=== PATIENT | female | born 1985 | race Caucasian/White ===

== ENCOUNTER 2016-10-01 06:20 | Day surgery (SDC) | payer MEDICAID ==
[~2016-10-01 06:20] MED LIST: Dextrose 5%-0.45% NaCl 1,000 ML IV SCH; Midazolam 1 MG/ML 2 ML SDV ONE; Sodium Chloride 0.9% 10 ML Syringe FLUSH PRN; fentaNYL 100 MCG/2 ML SDV ONE
[2016-10-01] MEDS ORDERED: Sodium Chloride 0.9% 10 ML Syringe FLUSH PRN (06:23)
[2016-10-01] MEDS ORDERED: Dextrose 5%-0.45% NaCl 1,000 ML IV SCH (06:30)
[2016-10-01] MEDS ORDERED: fentaNYL 100 MCG/2 ML SDV IV ONE ×3 (07:39→15:23)
[2016-10-01] MEDS ORDERED: Midazolam 1 MG/ML 2 ML SDV IV ONE ×3 (07:40→15:23)
--- NOTE | 2016-10-01 08:29 | OR ---
{null, DATE: 10/01/2016 PROCEDURES: Esophagogastroduodenoscopy and multiple pinch biopsies. INSTRUMENT USED: [id number] Olympus video panendoscope. PREMEDICATIONS: No oral topical anesthesia used. Fentanyl 100 mcg intravenous, Versed 2 mg intravenous. The procedure was done under pulse oximetry, BP recording, and weed science research technician. INDICATION: The patient with persistent upper abdominal pain unexplained and not responsive to medical measures, on PPI. Esophagogastroduodenoscopy is performed for detection of any active erosive lesions, Robbins esophagus and/or malignancy also under consideration, H. pylori status to be determined, endoscopic hemostasis therapy if needed. DESCRIPTION OF PROCEDURE: The scope was passed with ease. Adequate visualization of the esophagus was made from proximal to distal areas. No upper esophageal lesions identified. No distal esophageal stricture. No uphill or downhill esophageal varices. No Simran-Huerta tear. No evidence of erosive esophagitis by Ridott criteria. No esophageal polyp or tumor mass identified. Z-line was seen at around 40 cm distal to the oral verge, configuration consistent with grade 1 by ZAP classification. No proximal gastric varices noted. Gastric fundus examination by retroflexion showed no polypoid lesions. No gastric ulcer, malignant mass, or vascular ectasia identified. Quite a bit of liquid material was noted in the stomach, biliary fluid noted. No gastric ulcer, malignant mass, or vascular ectasia identified. Duodenal bulb showed no ulcer. Visualized second part of the duodenum was unremarkable. Multiple pinch biopsies were taken from the gastric antrum and proximal body and sent for PyloriTek test for H. pylori, and if negative in an hour, the tissue is to be sent for histopathology. No bleeding was noted from any of the visualized areas at the completion of examination. Photographs were taken of the duodenal bulb, gastric antrum, fundus, and distal esophagus. IMPRESSION: Normal study. The patient tolerated the procedure well. [facility] /[id number] }
[2016-10-01 09:55] VITALS: BP 120/99
== END 2016-10-01 09:30 | disposition home or self-care (01) ==
LOC: DL.ENDO 06:20
PROVIDERS: ATTEND Internal Medicine Gastroenterology
DX: K29.50 Unspecified chronic gastritis without bleeding (principal); Z88.2 Allergy status to sulfonamides; Z88.8 Allergy status to other drugs, medicaments and biological substances; Z91.018 Allergy to other foods
CPT/HCPCS: 43239; 87077; J2250; J3010; J7042

== ENCOUNTER 2017-01-29 23:59 | Emergency (ER) | payer MEDICAID ==
[2017-01-30 00:12] VITALS: BP 143/87
--- NOTE | 2017-01-30 00:33 | EDM.PDOC ---
ED HPI GENERAL MEDICAL PROBLEM - General Chief Complaint: General Stated Complaint: CHEST PAINS, SORE THROAT Time Seen by Provider: 01/30/17 00:21 Source of Information: Reports: Patient History Limitations: Reports: No Limitations - History of Present Illness INITIAL COMMENTS - FREE TEXT/NARRATIVE: This 31 yo female patient reports to the ED with a sore throat, cough, chest burning and generalized body aches. Onset Date: 01/27/17 Duration: Constant, Getting Worse Location: Reports: Chest Quality: Reports: Ache, Dull Severity: Moderate Improves with: Reports: None Worsens with: Reports: None Associated Symptoms: Reports: Chest Pain ("burning"), Cough Mid-Sternal Epigastric Pain Score (Numeric/FACES): 5 - Related Data Allergies Allergy/AdvReac Type Severity Reaction Status Date / Time codeine Allergy Itching Verified 10/01/16 06:49 morphine Allergy Itching Verified 10/01/16 06:49 Sulfa (Sulfonamide Allergy Other Verified 10/01/16 06:49 Antibiotics) tramadol Allergy Nausea and Verified 10/01/16 06:49 Vomiting cinnamon Allergy Other Uncoded 10/01/16 06:49 Home Meds: Home Meds ALPRAZolam [Xanax] 1 tab PO ASDIRECTED 09/29/16 [History] Hydrocodone/Acetaminophen [Lorcet Hd 10-325 mg Tablet] 1 tab PO Q6H PRN [History] Pantoprazole Sodium [Protonix] 1 tab PO DAILY 09/29/16 [History] Past Medical History - Past Health History Medical/Surgical History: Denies Medical/Surgical History HEENT History: Reports: Impaired Vision Cardiovascular History: Reports: None, Other (See Below) Other Cardiovascular History: PALPATIONS WITH ANXIETY Respiratory History: Reports: None Gastrointestinal History: Reports: None Other Gastrointestinal History: HEARTBURN Genitourinary History: Reports: Urinary Incontinence 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: , Other (See Below) Other OB/BYN History: cervical cancer Musculoskeletal History: Reports: Fracture Other Musculoskeletal History: R ANKLE Neurological History: Reports: None Psychiatric History: Reports: Anxiety, Depression, Panic Attack Endocrine/Metabolic History: Reports: Diabetes, Gestational, Diabetes, Type II, Obesity/BMI 30+ Hematologic History: Reports: None Immunologic History: Reports: None Oncologic (Cancer) History: Reports: Cervix Dermatologic History: Reports: None - Infectious Disease History Infectious Disease History: Reports: Chicken Pox, Shingles - Past Surgical History Female Surgical History: Reports: Tubal Ligation, Other (See Below) Social & Family History - Family History Family Medical History: Noncontributory - Tobacco Use Smoking Status *Q: Current Every Day Smoker Years of Tobacco use: 13 Packs/Tins Daily: 0.3 Used Tobacco, but Quit: No Second Hand Smoke Exposure: Yes - Caffeine Use Caffeine Use: Reports: Soda Other Caffeine Use: 5-6 CANS DAILY - Alcohol Use Days Per Week of Alcohol Use: 0 - Recreational Drug Use Recreational Drug Use: No Drug Use in Last 12 Months: No - Living Situation & Occupation Living situation: Reports: with Significant Other Occupation: Employed ED ROS GENERAL - Review of Systems Review Of Systems: ROS reveals no pertinent complaints other than HPI. ED EXAM, GENERAL - Physical Exam Exam: See Below Exam Limited By: No Limitations General Appearance: Alert, WD/WN, Mild Distress Eye Exam: Bilateral Eye: EOMI, Normal Inspection, PERRL Ears: Normal External Exam, Normal Canal, Hearing Grossly Normal, Normal TMs Nose: Normal Inspection, Normal Mucosa, No Blood Throat/Mouth: Normal Inspection, Normal Lips, Normal Teeth, Normal Gums, Normal Oropharynx, Normal Voice, No Airway Compromise Head: Atraumatic, Normocephalic Neck: Normal Inspection, Supple, Non-Tender, Full Range of Motion Respiratory/Chest: No Respiratory Distress, Lungs Clear, Normal Breath Sounds, No Accessory Muscle Use, Chest Non-Tender Cardiovascular: Normal Peripheral Pulses, Regular Rate, Rhythm, No Edema, No Gallop, No JVD, No Murmur, No Rub GI/Abdominal: Normal Bowel Sounds, Soft, Non-Tender, No Organomegaly, No Distention, No Abnormal Bruit, No Mass Rectal (Female) Exam: Deferred Back Exam: Normal Inspection, Full Range of Motion, NT Extremities: Normal Inspection, Normal Range of Motion, Non-Tender, Normal Capillary Refill, No Pedal Edema Neurological: Alert, Oriented, CN II-XII Intact, Normal Cognition, Normal Gait, Normal Reflexes, No Motor/Sensory Deficits Psychiatric: Normal Affect, Normal Mood Skin Exam: Warm, Dry, Intact, Normal Color, No Rash Lymphatic: No Adenopathy Course - Vital Signs Last Recorded V/S: Last Vital Signs Temp 36.4 C 01/30/17 00:07 Pulse 93 01/30/17 00:07 Resp 17 01/30/17 00:07 BP 143/87 H 01/30/17 00:07 Pulse Ox 97 01/30/17 00:07 - Orders/Labs/Meds Orders: Active Orders 24 hr Category Date Time Status Chest 2V [CR] Urgent Exams 01/30/17 00:24 Taken COMPREHENSIVE METABOLIC PN,CMP [CHEM] Urgent Lab 01/30/17 00:35 Received CULTURE STREP A CONFIRMATION [RM] Stat Lab 01/30/17 00:14 Results STREP SCRN A RAPID W CULT CONF [RM] Stat Lab 01/30/17 00:14 Results Amoxicillin/Clavulanate K [Augmentin 875 MG/125 MG] Med 01/30/17 00:58 Once 1 tab PO ONETIME ONE Medication Orders Amoxicillin/Clavulanate Potassium (Augmentin 875 Mg/125 Mg) 1 tab PO ONETIME ONE Stop: 01/30/17 00:59 Labs: Laboratory Tests 01/30/17 01/30/17 Range/Units 00:20 00:35 WBC 12.7 H (5.0-10.0) 10^3/uL RBC 4.07 L (4.2-5.4) 10^6/uL Hgb 12.9 (12.0-16.0) g/dL Hct 39.6 (37.0-47.0) % MCV 97.3 (80-100) fL MCH 31.7 (27.0-34.0) pg MCHC 32.6 L (33.0-35.0) g/dL Plt Count 375 (150-450) 10^3/uL Neut % (Auto) 56.6 (42.2-75.2) % Lymph % (Auto) 34.0 (20.5-50.1) % [place] % (Auto) 7.5 (2-8) % Eos % (Auto) 1.7 (1.0-3.0) % Baso % (Auto) 0.2 (0.0-1.0) % Urine Color Yellow (YELLOW) Urine Appearance Clear (CLEAR) Urine pH 5.0 (5.0-9.0) Ur Specific [place] 1.020 (1.005-1.030) Urine Protein Negative (NEGATIVE) Urine Glucose (UA) Negative (NEGATIVE) Urine Ketones Negative (NEGATIVE) Urine Occult Blood Negative (NEGATIVE) Urine Nitrite Negative (NEGATIVE) Urine Bilirubin Negative (NEGATIVE) Urine Urobilinogen 0.2 (0.2-1.0) mg/dL Ur Leukocyte Esterase Negative (NEGATIVE) Urine RBC Not seen /HPF Urine WBC 0-5 (0-5/HPF) /HPF Ur Epithelial Cells Few /HPF Urine Bacteria Few (0-FEW/HPF) /HPF Meds: Medications Generic Name Dose Route Start Last Admin Trade Name Freq PRN Reason Stop Dose Admin Amoxicillin/Clavulanate Potassium 1 tab 01/30/17 00:58 Augmentin 875 Mg/125 Mg PO 01/30/17 00:59 ONETIME ONE Departure - Departure Time of Disposition: 01:00 Disposition: Home, Self-Care 01 Condition: Fair Clinical Impression: Bronchitis - Discharge Information Instructions: Acute Bronchitis, [id number] Forms: ED Department Discharge Care Plan Goals: The patient was advised of the examination, lab and x-ray results during the visit. The patient was given an oral dose of Augmentin (875/125) while in the ED. The patient was discharged with a script for Augmentin (500/125) to take 1 by mouth 2 times per day for 10 days. If the patient has any additional symptoms or concerns, the patient should follow-up with her primary care facility or return to the emergency department. - My Orders Last 24 Hours: My Active Orders 01/30/17 00:14 CULTURE STREP A CONFIRMATION [RM] Stat STREP SCRN A RAPID W CULT CONF [RM] Stat 01/30/17 00:24 Chest 2V [CR] Urgent 01/30/17 00:35 COMPREHENSIVE METABOLIC PN,CMP [CHEM] Urgent 01/30/17 00:58 Amoxicillin/Clavulanate K [Augmentin 875 MG/125 MG] 1 tab PO ONETIME ONE - Assessment/Plan Last 24 Hours: My Active Orders 01/30/17 00:14 CULTURE STREP A CONFIRMATION [RM] Stat STREP SCRN A RAPID W CULT CONF [RM] Stat 01/30/17 00:24 Chest 2V [CR] Urgent 01/30/17 00:35 COMPREHENSIVE METABOLIC PN,CMP [CHEM] Urgent 01/30/17 00:58 Amoxicillin/Clavulanate K [Augmentin 875 MG/125 MG] 1 tab PO ONETIME ONE
[2017-01-30] MEDS ORDERED: Amoxicillin/Clavulanate K 875-125 MG Tab PO ONE (00:58)
[2017-01-30 01:01] LABS: CHLORIDE,CL 101 mmol/L (101-111); SODIUM,NA 141 mmol/L (135-145)
== END 2017-01-30 01:10 | disposition home or self-care (01) ==
LOC: DL.ED 23:59
DX: J40 Bronchitis, not specified as acute or chronic (principal); F41.0 Panic disorder [episodic paroxysmal anxiety]; F32.9 Major depressive disorder, single episode, unspecified; E11.9 Type 2 diabetes mellitus without complications; E66.9 Obesity, unspecified; F17.210 Nicotine dependence, cigarettes, uncomplicated; Z85.41 Personal history of malignant neoplasm of cervix uteri; Z98.51 Tubal ligation status; Z79.899 Other long term (current) drug therapy; Z88.2 Allergy status to sulfonamides; Z88.5 Allergy status to narcotic agent; Z91.018 Allergy to other foods; Z68.31 Body mass index [BMI] 31.0-31.9, adult
CPT/HCPCS: 36415; 71020; 80053; 81001; 85025; 87081; 87430; 99283; A9270

== ENCOUNTER 2017-06-27 09:53 | Emergency (ER) | payer MEDICAID ==
[2017-06-27 10:02] VITALS: BP 130/67
--- NOTE | 2017-06-27 10:13 | EDM.PDOC ---
ED HPI GENERAL MEDICAL PROBLEM - General Chief Complaint: Cardiovascular Problem Stated Complaint: BODY HURTS, HEART RACING, NAUSEA, DIARRHEA Time Seen by Provider: 06/27/17 10:12 Source of Information: Reports: Patient, Old Records, RN, RN Notes Reviewed History Limitations: Reports: No Limitations - History of Present Illness INITIAL COMMENTS - FREE TEXT/NARRATIVE: Arrives from home by POV with c/o sudden onset of rapid heart rate and a sharp chest pain with breathing this morning. She reports 2-3 days duration of nausea , and diarrhea with some blood in the diarrhea. Denies any abdominal pain. Admits to mild cramping that precedes the diarrhea. Pt reports generalized body aches, and sensation of low grade fevers. Onset: Gradual Onset Date: 06/26/17 Duration: Constant Location: Reports: Chest, Abdomen, Generalized Quality: Reports: Ache Severity: Moderate Improves with: Reports: None Worsens with: Reports: Eating Associated Symptoms: Reports: No Other Symptoms Treatments DIRECTOR OF SPECIAL EDUCATION: Reports: Acetaminophen, Other Medication(s) (Tums) Chest Pain Score (Numeric/FACES): 6 - Related Data Allergies Allergy/AdvReac Type Severity Reaction Status Date / Time codeine Allergy Itching Verified 06/27/17 10:03 morphine Allergy Itching Verified 06/27/17 10:03 Sulfa (Sulfonamide Allergy Other Verified 06/27/17 10:03 Antibiotics) tramadol Allergy Nausea and Verified 06/27/17 10:03 Vomiting cinnamon Allergy Other Uncoded 10/01/16 06:49 Home Meds: Home Meds Aspirin 1 tab PO DAILY 06/27/17 [History] Past Medical History - Past Health History Medical/Surgical History: Denies Medical/Surgical History HEENT History: Reports: Impaired Vision Cardiovascular History: Reports: None, Other (See Below) Other Cardiovascular History: PALPATIONS WITH ANXIETY Respiratory History: Reports: None Gastrointestinal History: Reports: None Other Gastrointestinal History: HEARTBURN Genitourinary History: Reports: Urinary Incontinence 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: , Other (See Below) Other OB/BYN History: cervical cancer Musculoskeletal History: Reports: Fracture Other Musculoskeletal History: R ANKLE Neurological History: Reports: None Psychiatric History: Reports: Anxiety, Depression, Panic Attack Endocrine/Metabolic History: Reports: Diabetes, Gestational, Diabetes, Type II, Obesity/BMI 30+ Hematologic History: Reports: None Immunologic History: Reports: None Oncologic (Cancer) History: Reports: Cervix Dermatologic History: Reports: None - Infectious Disease History Infectious Disease History: Reports: Chicken Pox, Shingles - Past Surgical History Female Surgical History: Reports: Tubal Ligation, Other (See Below) Social & Family History - Family History Family Medical History: Noncontributory - Tobacco Use Smoking Status *Q: Current Every Day Smoker Years of Tobacco use: 13 Packs/Tins Daily: 0.3 Used Tobacco, but Quit: No Second Hand Smoke Exposure: Yes - Caffeine Use Caffeine Use: Reports: Soda Other Caffeine Use: 5-6 CANS DAILY - Alcohol Use Days Per Week of Alcohol Use: 0 - Recreational Drug Use Recreational Drug Use: No Drug Use in Last 12 Months: No - Living Situation & Occupation Living situation: Reports: with Significant Other Occupation: Employed ED ROS GENERAL - Review of Systems Review Of Systems: ROS reveals no pertinent complaints other than HPI. ED EXAM, GENERAL - Physical Exam Exam: See Below Exam Limited By: No Limitations General Appearance: Alert, WD/WN, No Apparent Distress, Anxious, Obese, Other ( non-toxic appearing) Eye Exam: Bilateral Eye: Normal Inspection Ears: Normal External Exam, Normal Canal, Hearing Grossly Normal, Normal TMs Nose: Normal Inspection, Normal Mucosa, No Blood Throat/Mouth: Normal Lips, Normal Teeth, Normal Gums, Normal Oropharynx, Normal Voice, No Airway Compromise, Other (dry oral membranes) Head: Atraumatic, Normocephalic Neck: Normal Inspection, Supple, Non-Tender, Full Range of Motion, Other (no nuchal rigidity). No: Lymphadenopathy (L), Lymphadenopathy (R) Respiratory/Chest: No Respiratory Distress, Lungs Clear, Normal Breath Sounds, No Accessory Muscle Use, Chest Non-Tender Cardiovascular: Normal Peripheral Pulses, Regular Rate, Rhythm, No Edema, No Gallop, No JVD, No Rub GI/Abdominal: Soft, Non-Tender, No Distention, No Abnormal Bruit, Abnormal Bowel Sounds (slightly hyperactive bowel sounds). No: Guarding, Rigid, Rebound (Female) Exam: Deferred Rectal (Female) Exam: Deferred Back Exam: Normal Inspection, Full Range of Motion. No: CVA Tenderness (L), CVA Tenderness (R) Extremities: Normal Inspection, Non-Tender, No Pedal Edema Neurological: Alert, Oriented, CN II-XII Intact, Normal Cognition, Normal Gait, No Motor/Sensory Deficits Psychiatric: Normal Affect, Normal Mood Skin Exam: Warm, Dry, Intact, Normal Color, No Rash Course - Vital Signs Last Recorded V/S: Last Vital Signs Temp 36.9 C 06/27/17 09:56 Pulse 94 06/27/17 09:56 Resp 16 06/27/17 09:56 BP 130/67 06/27/17 09:56 Pulse Ox 100 06/27/17 09:56 - Orders/Labs/Meds Orders: Active Orders 24 hr Category Date Time Status EKG 12 Lead [EKG Documentation Completion] [] STAT Care 06/27/17 10:11 Active Peripheral IV Care [] . DIRECTED Care 06/27/17 10:21 Active CULTURE STREP A CONFIRMATION [] Stat Lab 06/27/17 10:12 Results STREP SCRN A RAPID W CULT CONF [] Stat Lab 06/27/17 10:12 Results Sodium Chloride 0.9% [Saline Flush] Med 06/27/17 10:21 Active 10 ml FLUSH ASDIRECTED PRN Peripheral IV Insertion Adult [OM.PC] Stat Oth 06/27/17 10:21 Ordered Medication Orders Sodium Chloride (Saline Flush) 10 ml FLUSH ASDIRECTED PRN PRN Reason: Keep Vein Open Last Admin: 06/27/17 10:32 Dose: 10 ml Labs: Laboratory Tests 06/27/17 06/27/17 06/27/17 Range/Units 10:08 10:08 10:27 WBC 21.9 H (5.0-10.0) 10^3/uL RBC 4.66 (4.2-5.4) 10^6/uL Hgb 14.6 D (12.0-16.0) g/dL Hct 44.1 (37.0-47.0) % MCV 94.6 (80-100) fL MCH 31.3 (27.0-34.0) pg MCHC 33.1 (33.0-35.0) g/dL Plt Count 374 (150-450) 10^3/uL Neut % (Auto) 81.0 H (42.2-75.2) % Lymph % (Auto) 13.4 L (20.5-50.1) % [place] % (Auto) 5.3 (2-8) % Eos % (Auto) 0.2 L (1.0-3.0) % Baso % (Auto) 0.1 (0.0-1.0) % Sodium 139 (135-145) mmol/L Potassium 3.7 (3.6-5.0) mmol/L Chloride 110 (101-111) mmol/L Carbon Dioxide 18.0 L D (21.0-31.0) mmol/L Anion Gap 14.7 BUN 13 (7-18) mg/dL Creatinine 0.8 (0.6-1.3) mg/dL Est Cr Clr Drug Dosing 88.79 mL/min Estimated GFR (MDRD) > 60 BUN/Creatinine Ratio 16.25 Glucose 92 (74-105) mg/dL Calcium 9.1 (8.4-10.2) mg/dl Total Bilirubin 0.3 (0.2-1.0) mg/dL AST 26 (10-42) IU/L ALT 23 (10-60) IU/L Alkaline Phosphatase 53 (42-121) IU/L Troponin I < 0.02 (0.00-0.02) ng/ml Total Protein 7.7 (6.7-8.2) g/dl Albumin 4.2 (3.2-5.5) g/dl Globulin 3.5 Albumin/Globulin Ratio 1.20 Amylase 35 (28-100) U/L Lipase 19 L (22-51) U/L Urine Color (YELLOW) Urine Appearance (CLEAR) Urine pH (5.0-9.0) Ur Specific [place] (1.005-1.030) Urine Protein (NEGATIVE) Urine Glucose (UA) (NEGATIVE) Urine Ketones (NEGATIVE) Urine Occult Blood (NEGATIVE) Urine Nitrite (NEGATIVE) Urine Bilirubin (NEGATIVE) Urine Urobilinogen (0.2-1.0) mg/dL Ur Leukocyte Esterase (NEGATIVE) Urine RBC /HPF Urine WBC (0-5/HPF) /HPF Ur Epithelial Cells /HPF Amorphous Sediment (0/HPF) /HPF Urine Bacteria (0-FEW/HPF) /HPF Urine Mucus /LPF Urine HCG, Qual Negative 06/27/17 Range/Units 10:27 WBC (5.0-10.0) 10^3/uL RBC (4.2-5.4) 10^6/uL Hgb (12.0-16.0) g/dL Hct (37.0-47.0) % MCV (80-100) fL MCH (27.0-34.0) pg MCHC (33.0-35.0) g/dL Plt Count (150-450) 10^3/uL Neut % (Auto) (42.2-75.2) % Lymph % (Auto) (20.5-50.1) % [place] % (Auto) (2-8) % Eos % (Auto) (1.0-3.0) % Baso % (Auto) (0.0-1.0) % Sodium (135-145) mmol/L Potassium (3.6-5.0) mmol/L Chloride (101-111) mmol/L Carbon Dioxide (21.0-31.0) mmol/L Anion Gap BUN (7-18) mg/dL Creatinine (0.6-1.3) mg/dL Est Cr Clr Drug Dosing mL/min Estimated GFR (MDRD) BUN/Creatinine Ratio Glucose (74-105) mg/dL Calcium (8.4-10.2) mg/dl Total Bilirubin (0.2-1.0) mg/dL AST (10-42) IU/L ALT (10-60) IU/L Alkaline Phosphatase (42-121) IU/L Troponin I (0.00-0.02) ng/ml Total Protein (6.7-8.2) g/dl Albumin (3.2-5.5) g/dl Globulin Albumin/Globulin Ratio Amylase (28-100) U/L Lipase (22-51) U/L Urine Color Yellow (YELLOW) Urine Appearance Turbid (CLEAR) Urine pH 5.5 (5.0-9.0) Ur Specific [place] 1.025 (1.005-1.030) Urine Protein 30 H (NEGATIVE) Urine Glucose (UA) Negative (NEGATIVE) Urine Ketones Negative (NEGATIVE) Urine Occult Blood Negative (NEGATIVE) Urine Nitrite Negative (NEGATIVE) Urine Bilirubin Negative (NEGATIVE) Urine Urobilinogen 0.2 (0.2-1.0) mg/dL Ur Leukocyte Esterase Negative (NEGATIVE) Urine RBC 0-5 /HPF Urine WBC 0-5 (0-5/HPF) /HPF Ur Epithelial Cells Few /HPF Amorphous Sediment Many H (0/HPF) /HPF Urine Bacteria Few (0-FEW/HPF) /HPF Urine Mucus Rare /LPF Urine HCG, Qual Meds: Medications Generic Name Dose Route Start Last Admin Trade Name Fremaral PRN Reason Stop Dose Admin Sodium Chloride 10 ml 06/27/17 10:21 06/27/17 10:32 Saline Flush FLUSH 10 ml ASDIRECTED PRN Administration Keep Vein Open Discontinued Medications Generic Name Dose Route Start Last Admin Trade Name Shahrzad PRN Reason Stop Dose Admin Sodium Chloride 1,000 mls @ 999 mls/hr 06/27/17 10:22 06/27/17 10:31 Normal Saline IV 06/27/17 11:22 999 mls/hr .BOLUS ONE Administration Ketorolac Tromethamine 30 mg 06/27/17 10:22 06/27/17 10:32 Toradol IVPUSH 06/27/17 10:23 30 mg ONETIME ONE Administration Ondansetron HCl 4 mg 06/27/17 10:22 06/27/17 10:32 Zofran IV 06/27/17 10:23 4 mg ONETIME ONE Administration Departure - Departure Time of Disposition: 11:43 Disposition: Home, Self-Care 01 Condition: Fair Clinical Impression: Colitis presumed infectious, Dehydration, Palpitations Instructions: Dehydration, Adult, [id number], Palpitations, [id number], Colitis Forms: ED Department Discharge Additional Instructions: Rx: Zofran 4mg Clear liquid diet until nausea and/or vomiting resolves, then advance to soft bland diet as tolerated. Avoid dairy products, fried or greasy foods, and spicy foods until completely improved. Follow up in clinic if not improving in 3 to 5 days. Return to ER pain becomes severe, you are unable to tolerated clear liquids without vomiting, or if any other emergent symptoms develop. - My Orders Last 24 Hours: My Active Orders 06/27/17 10:11 EKG 12 Lead [EKG Documentation Completion] [RC] STAT 06/27/17 10:12 CULTURE STREP A CONFIRMATION [] Stat STREP SCRN A RAPID W CULT CONF [] Stat 06/27/17 10:21 Peripheral IV Care [RC] . DIRECTED Sodium Chloride 0.9% [Saline Flush] 10 ml FLUSH ASDIRECTED PRN Peripheral IV Insertion Adult [OM.PC] Stat - Assessment/Plan Last 24 Hours: My Active Orders 06/27/17 10:11 EKG 12 Lead [EKG Documentation Completion] [RC] STAT 06/27/17 10:12 CULTURE STREP A CONFIRMATION [] Stat STREP SCRN A RAPID W CULT CONF [] Stat 06/27/17 10:21 Peripheral IV Care [] . DIRECTED Sodium Chloride 0.9% [Saline Flush] 10 ml FLUSH ASDIRECTED PRN Peripheral IV Insertion Adult [OM.PC] Stat
[2017-06-27] MEDS ORDERED: Sodium Chloride 0.9% 10 ML Syringe FLUSH PRN (10:21)
[2017-06-27] MEDS ORDERED: Ketorolac 30 MG/ML SDV IVPUSH ONE (10:22)
[2017-06-27] MEDS ORDERED: Ondansetron 4 MG/2 ML SDV IV ONE (10:22)
[2017-06-27] MEDS ORDERED: Sodium Chloride 0.9% 1,000 ML IV ONE (10:22)
[2017-06-27 12:02] LABS: CHLORIDE,CL 110 mmol/L (101-111); SODIUM,NA 139 mmol/L (135-145)
--- NOTE | 2017-06-29 12:31 | EKG ---
06/27/2017 - REBEL LAURENT - FINDINGS: A 12-lead EKG shows normal sinus rhythm with heart rate of 90. No significant ST elevation or ST depression noted on this 12-lead EKG. Nonspecific ST changes noted on lead II. [facility] /[id number]
== END 2017-06-27 12:03 | disposition home or self-care (01) ==
LOC: DL.ED 09:53
DX: K52.9 Noninfective gastroenteritis and colitis, unspecified (principal); E86.0 Dehydration; R00.2 Palpitations; F17.210 Nicotine dependence, cigarettes, uncomplicated; Z88.5 Allergy status to narcotic agent; Z88.2 Allergy status to sulfonamides; Z79.82 Long term (current) use of aspirin
CPT/HCPCS: 36415; 80053; 81001; 81025; 82150; 83690; 84484; 85025; 87081; 87430; 87804; 93005; 96361; 96374; 96375; 99285; J1885; J2405; J7030; J7050

== ENCOUNTER 2017-07-12 10:38 | Emergency (ER) | payer MEDICAID | END 2017-07-12 11:50 | disposition left against medical advice (07) | LOC: DL.ED 10:38 | DX: Z53.21 Procedure and treatment not carried out due to patient leaving prior to being seen by health care provider (principal) ==

== ENCOUNTER 2017-10-06 08:15 | Day surgery (SDC) | payer MEDICAID ==
[~2017-10-06 08:15] MED LIST changes: -Dextrose 5%-0.45% NaCl 1,000 ML IV SCH; +Lactated Ringers 1,000 ML IV SCH; -Midazolam 1 MG/ML 2 ML SDV ONE; -fentaNYL 100 MCG/2 ML SDV ONE
[2017-10-06] MEDS ORDERED: Propofol 200 MG/20 ML SDV IV ONE (08:16)
[2017-10-06] MEDS ORDERED: Ondansetron 4 MG/2 ML SDV IV ONE (08:16)
[2017-10-06] MEDS ORDERED: Ketorolac 30 MG/ML SDV IVPUSH ONE (08:16)
[2017-10-06] MEDS ORDERED: fentaNYL 100 MCG/2 ML SDV IV ONE (08:16)
[2017-10-06] MEDS ORDERED: Rocuronium 50 MG/5 ML Vial IV ONE (08:16)
[2017-10-06] MEDS ORDERED: Succinylcholine 200 MG/10 ML MDV IV ONE (08:16)
[2017-10-06] MEDS ORDERED: Midazolam 1 MG/ML 2 ML SDV IV ONE (08:16)
[2017-10-06] MEDS ORDERED: Dexamethasone 4 MG/ML SDV IV ONE (08:16)
[2017-10-06] MEDS ORDERED: Sodium Chloride 0.9% 10 ML Syringe FLUSH PRN (08:30)
[2017-10-06] MEDS ORDERED: Lidocaine 1% 30 ML SDV ONE (09:05)
[2017-10-06] MEDS ORDERED: Bupivacaine 0.5% 30 ML SDV ONE (09:05)
[2017-10-06] MEDS ORDERED: Lidocaine 1% 30 ML SDV INJECT ONE ×2 (10:05→11:25)
[2017-10-06] MEDS ORDERED: Bupivacaine 0.5% 30 ML SDV INJECT ONE ×2 (10:05→11:25)
[2017-10-06] MEDS ORDERED: Propofol 200 MG/20 ML SDV ONE (10:13)
[2017-10-06] MEDS ORDERED: Betamethasone Acetate/Betamethasone Sod Phosphate 30 MG/5 ML MDV ONE (10:13)
[2017-10-06] MEDS ORDERED: Betamethasone Acetate/Betamethasone Sod Phosphate 30 MG/5 ML MDV IM ONE (10:58)
--- NOTE | 2017-10-06 11:36 | PCM.OPNOTE ---
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 TT 60 mins. Well padded L&U compression dressing applied. Epifix amion graft applied.
[2017-10-06] MEDS ORDERED: Acetaminophen/HYDROcodone 325-10 MG Tab PO PRN (11:37)
[2017-10-06 12:45] VITALS: BP 119/73
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
== END 2017-10-06 13:10 | disposition home or self-care (01) ==
LOC: DL.SDS 08:15
PROVIDERS: ATTEND Podiatrist
DX: G57.82 Other specified mononeuropathies of left lower limb (principal); F17.210 Nicotine dependence, cigarettes, uncomplicated; K21.9 Gastro-esophageal reflux disease without esophagitis; Z88.6 Allergy status to analgesic agent; Z88.5 Allergy status to narcotic agent; Z88.2 Allergy status to sulfonamides
CPT/HCPCS: 01480; 64782; 64912; A9270; C1762; J0330; J0702; J1100; J1885; J2250; J2405; J2704; J3010; J7120

== ENCOUNTER 2017-12-12 19:26 | Emergency (ER) | payer MEDICAID ==
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
[2017-12-12 22:52] LABS: ANION GAP 11.7; CHLORIDE,CL 107 mmol/L (101-111); SODIUM,NA 140 mmol/L (135-145)
[2017-12-12 22:59] VITALS: BP 122/77
[2017-12-12] MEDS ORDERED: cefTRIAXone 1 GM Vial IVPUSH ONE (23:05)
[2017-12-12] MEDS ORDERED: Codeine/guaiFENesin 100-10 MG/5 ML Syrup 5 ML Cup PO ONE (23:11)
[2017-12-12] MEDS ORDERED: diphenhydrAMINE 50 MG/ML SDV IVPUSH ONE (23:32)
== END 2017-12-12 23:49 | disposition home or self-care (01) ==
LOC: DL.ED 19:26
DX: J40 Bronchitis, not specified as acute or chronic (principal); K21.9 Gastro-esophageal reflux disease without esophagitis; F17.210 Nicotine dependence, cigarettes, uncomplicated; Z88.8 Allergy status to other drugs, medicaments and biological substances; Z88.2 Allergy status to sulfonamides; Z88.5 Allergy status to narcotic agent; Z79.82 Long term (current) use of aspirin
CPT/HCPCS: 36415; 71046; 80053; 83605; 85025; 87040; 96374; 96375; 99283; A9270; J0696; J1200

== ENCOUNTER 2018-01-13 17:23 | Emergency (ER) | payer MEDICAID ==
[2018-01-13 17:57] VITALS: BP 140/87
[2018-01-13 18:16] LABS: CHLORIDE,CL 102 mmol/L (101-111); SODIUM,NA 138 mmol/L (135-145)
--- NOTE | 2018-01-13 18:30 | EDM.PDOC ---
<Dwain Reynoso M - Last Filed: 01/13/18 18:50> ED HPI GENERAL MEDICAL PROBLEM - General Chief Complaint: Cardiovascular Problem Stated Complaint: CHEST PAIN [id number] Time Seen by Provider: 01/13/18 18:20 Source of Information: Reports: Patient History Limitations: Reports: No Limitations - History of Present Illness INITIAL COMMENTS - FREE TEXT/NARRATIVE: This 32 yo female patient reports to the ED with increased shortness of breath an some left sided chest pain. The patient was seen previously in the ED with an elevated WBC and started on antibiotics. The patient followed-up with Dr. Gamez and was started on oral steroids, inhaled steroids and a rescue inhaler. Duration: Week(s):, Constant Location: Reports: Chest Quality: Reports: Other Severity: Moderate Improves with: Reports: None Worsens with: Reports: None Associated Symptoms: Reports: Shortness of Breath - Related Data Allergies Allergy/AdvReac Type Severity Reaction Status Date / Time morphine Allergy Itching Verified 01/13/18 17:43 Sulfa (Sulfonamide Allergy Other Verified 01/13/18 17:43 Antibiotics) tramadol Allergy Nausea and Verified 01/13/18 17:43 Vomiting cinnamon Allergy Other Uncoded 01/13/18 17:43 Home Meds: Home Meds Aspirin [Ecotrin] 81 mg PO DAILY 10/05/17 [History] Aspirin/Caffeine [Marvin Back & Body Caplet] 3 tab PO .PRN 10/05/17 [History] Albuterol Sulfate [Proair Hfa] 1 puff INH Q4HR 01/13/18 [History] Budesonide/Formoterol Fumarate [Symbicort 160-4.5 Mcg Inhaler] 2 puff INH BID [History] Hydrocodone/Acetaminophen [Hydrocodon-Acetaminophen 5-325] 1 mg PO ASDIRECTED [History] predniSONE 40 mg PO DAILY 01/13/18 [History] Past Medical History - Past Health History Medical/Surgical History: Denies Medical/Surgical History HEENT History: Reports: Impaired Vision Cardiovascular History: Reports: Other (See Below) Other Cardiovascular History: Palpitations with anxiety. patient states she was told she had a suspected "hole" in heart, but told she does not need follow up care or medications for it Respiratory History: Reports: Asthma, Other (See Below) Other Respiratory History: HX OF REACTIVE AIRWAY DISEASE Gastrointestinal History: Reports: GERD Other Gastrointestinal History: HEARTBURN Genitourinary History: Reports: None WEATHERCASTER History: Reports: , Other (See Below) Other WEATHERCASTER History: cervical cancer - LSIL & HPV ON PAP SMEAR. HX OF CHLAMYDIA. HX OF PREECLAMPSIA, SEVERE WITH 1ST & 2ND PREGNANCIES. HX OF GESTATIONAL DIABESTES WITH 2ND , HYPOGLYCEMIA Musculoskeletal History: Reports: Fracture Other Musculoskeletal History: R ANKLE Neurological History: Reports: Headaches, Chronic Psychiatric History: Reports: Anxiety, Depression, Panic Attack Endocrine/Metabolic History: Reports: Diabetes, Gestational, Obesity/BMI 30+ Other Endocrine/Metabolic History: hx of low blood sugar, does not have any problems now per patient. Diet controlled Hematologic History: Reports: None Immunologic History: Reports: None Oncologic (Cancer) History: Reports: Cervix Dermatologic History: Reports: None - Infectious Disease History Infectious Disease History: Reports: Chicken Pox, Shingles - Past Surgical History Head Surgeries/Procedures: Reports: None HEENT Surgical History: Reports: None Cardiovascular Surgical History: Reports: None Respiratory Surgical History: Reports: None GI Surgical History: Reports: Cholecystectomy, EGD Female Surgical History: Reports: Tubal Ligation, Other (See Below) Other Female Surgeries/Procedures: vaginal colposcopy. HX OF IUD INSERTION Endocrine Surgical History: Reports: None Neurological Surgical History: Reports: None Musculoskeletal Surgical History: Reports: Other (See Below) Other Musculoskeletal Surgeries/Procedures:: S/P ANKLE SURGERY Oncologic Surgical History: Reports: None Dermatological Surgical History: Reports: None Social & Family History - Family History Family Medical History: Noncontributory - Tobacco Use Smoking Status *Q: Former Smoker Used Tobacco, but Quit: Yes Month/Year Tobacco Last Used: 10/19/17 - Caffeine Use Caffeine Use: Reports: Coffee, Energy Drinks, Soda Other Caffeine Use: 5-6 CANS DAILY - Recreational Drug Use Recreational Drug Use: No - Living Situation & Occupation Living situation: Reports: with Significant Other Occupation: Employed ED ROS GENERAL - Review of Systems Review Of Systems: ROS reveals no pertinent complaints other than HPI. ED EXAM, GENERAL - Physical Exam Exam: See Below Exam Limited By: No Limitations General Appearance: Alert, WD/WN, Anxious, Moderate Distress Eye Exam: Bilateral Eye: EOMI, Normal Inspection, PERRL Ears: Normal External Exam, Normal Canal, Hearing Grossly Normal, Normal TMs Nose: Normal Inspection, Normal Mucosa, No Blood Throat/Mouth: Normal Inspection, Normal Lips, Normal Teeth, Normal Gums, Normal Oropharynx, Normal Voice, No Airway Compromise Head: Atraumatic, Normocephalic Neck: Normal Inspection, Supple, Non-Tender, Full Range of Motion Respiratory/Chest: No Respiratory Distress, Lungs Clear, No Accessory Muscle Use , Chest Non-Tender, Decreased Breath Sounds Cardiovascular: Normal Peripheral Pulses, Regular Rate, Rhythm, No Edema, No Gallop, No JVD, No Murmur, No Rub GI/Abdominal: Normal Bowel Sounds, Soft, Non-Tender, No Organomegaly, No Distention, No Abnormal Bruit, No Mass (Female) Exam: Deferred Rectal (Female) Exam: Deferred Back Exam: Normal Inspection, Full Range of Motion, NT Extremities: Normal Inspection, Normal Range of Motion, Non-Tender, Normal Capillary Refill, No Pedal Edema Neurological: Alert, Oriented, CN II-XII Intact, Normal Cognition, Normal Gait, Normal Reflexes, No Motor/Sensory Deficits Psychiatric: Normal Affect, Normal Mood Skin Exam: Warm, Dry, Intact, Normal Color, No Rash Lymphatic: No Adenopathy Course - Vital Signs Last Recorded V/S: Last Vital Signs Temp 36.7 C 01/13/18 17:52 Pulse 102 H 01/13/18 17:52 Resp 20 01/13/18 17:52 BP 140/87 01/13/18 17:52 Pulse Ox 99 01/13/18 17:52 - Orders/Labs/Meds Orders: Active Orders 24 hr Category Date Time Status EKG 12 Lead [EKG Documentation Completion] [RC] STAT Care 01/13/18 17:59 Active RT Aerosol Therapy [RC] ASDIRECTED Care 01/13/18 20:09 Active CULTURE BLOOD [BC] Stat Lab 01/13/18 19:20 Results HCG QUALITATIVE,URINE [URCHEM] Stat Lab 01/13/18 17:50 Ordered Labs: Laboratory Tests 01/13/18 01/13/18 01/13/18 Range/Units 17:45 17:45 17:45 WBC 26.1 H* (5.0-10.0) 10^3/uL RBC 4.42 (4.2-5.4) 10^6/uL Hgb 13.9 (12.0-16.0) g/dL Hct 43.1 (37.0-47.0) % MCV 97.5 (80-100) fL MCH 31.4 (27.0-34.0) pg MCHC 32.3 L (33.0-35.0) g/dL Plt Count 417 D (150-450) 10^3/uL Neut % (Auto) 80.5 H (42.2-75.2) % Lymph % (Auto) 13.8 L (20.5-50.1) % [place] % (Auto) 5.5 (2-8) % Eos % (Auto) 0.1 L (1.0-3.0) % Baso % (Auto) 0.1 (0.0-1.0) % Add Manual Diff Yes Neutrophils % (Manual) 71 (42-75) % Band Neutrophils % 0 % Lymphocytes % (Manual) 20 (20-50) % Atypical Lymphs % 0 % Monocytes % (Manual) 4 (2-8) % Eosinophils % (Manual) 5 H (1-3) % Basophils % (Manual) 0 Platelet Estimate Increased Poikilocytosis 1+ slight Anisocytosis 1+ slight D-Dimer, Quantitative (0-400) ng/mL Sodium 138 (135-145) mmol/L Potassium 4.0 (3.6-5.0) mmol/L Chloride 102 (101-111) mmol/L Carbon Dioxide 26.0 (21.0-31.0) mmol/L Anion Gap 14.0 BUN 19 H (7-18) mg/dL Creatinine 0.7 (0.6-1.3) mg/dL Est Cr Clr Drug Dosing TNP Estimated GFR (MDRD) > 60 BUN/Creatinine Ratio 27.14 Glucose 112 H (74-105) mg/dL Lactic Acid (0.5-2.2) mmol/L Calcium 9.2 (8.4-10.2) mg/dl Total Bilirubin 0.4 (0.2-1.0) mg/dL AST 23 (10-42) IU/L ALT 30 (10-60) IU/L Alkaline Phosphatase 49 (42-121) IU/L Troponin I < 0.02 (0.00-0.02) ng/ml C-Reactive Protein 0.9 (0.0-1.3) mg/dL Total Protein 7.4 (6.7-8.2) g/dl Albumin 4.1 (3.2-5.5) g/dl Globulin 3.3 Albumin/Globulin Ratio 1.24 Urine Color (YELLOW) Urine Appearance (CLEAR) Urine pH (5.0-9.0) Ur Specific [place] (1.005-1.030) Urine Protein (NEGATIVE) Urine Glucose (UA) (NEGATIVE) Urine Ketones (NEGATIVE) Urine Occult Blood (NEGATIVE) Urine Nitrite (NEGATIVE) Urine Bilirubin (NEGATIVE) Urine Urobilinogen (0.2-1.0) mg/dL Ur Leukocyte Esterase (NEGATIVE) Urine RBC /HPF Urine WBC (0-5/HPF) /HPF Ur Epithelial Cells /HPF Urine Bacteria (0-FEW/HPF) /HPF Urinalysis Comment Urine HCG, Qual Urine Opiates Screen (NEGATIVE) Ur Oxycodone Screen (NEGATIVE) Urine Methadone Screen (NEGATIVE) Ur Barbiturates Screen (NEGATIVE) U Tricyclic Antidepress (NEGATIVE) Ur Phencyclidine Scrn (NEGATIVE) Ur Amphetamine Screen (NEGATIVE) U Methamphetamines Scrn (NEGATIVE) Urine MDMA Screen (NEGATIVE) U Benzodiazepines Scrn (NEGATIVE) Urine Cocaine Screen (NEGATIVE) U Marijuana (THC) Screen (NEGATIVE) 01/13/18 01/13/18 01/13/18 Range/Units 17:45 17:50 17:50 WBC (5.0-10.0) 10^3/uL RBC (4.2-5.4) 10^6/uL Hgb (12.0-16.0) g/dL Hct (37.0-47.0) % MCV (80-100) fL MCH (27.0-34.0) pg MCHC (33.0-35.0) g/dL Plt Count (150-450) 10^3/uL Neut % (Auto) (42.2-75.2) % Lymph % (Auto) (20.5-50.1) % [place] % (Auto) (2-8) % Eos % (Auto) (1.0-3.0) % Baso % (Auto) (0.0-1.0) % Add Manual Diff Neutrophils % (Manual) (42-75) % Band Neutrophils % % Lymphocytes % (Manual) (20-50) % Atypical Lymphs % % Monocytes % (Manual) (2-8) % Eosinophils % (Manual) (1-3) % Basophils % (Manual) Platelet Estimate Poikilocytosis Anisocytosis D-Dimer, Quantitative < 100 (0-400) ng/mL Sodium (135-145) mmol/L Potassium (3.6-5.0) mmol/L Chloride (101-111) mmol/L Carbon Dioxide (21.0-31.0) mmol/L Anion Gap BUN (7-18) mg/dL Creatinine (0.6-1.3) mg/dL Est Cr Clr Drug Dosing Estimated GFR (MDRD) BUN/Creatinine Ratio Glucose (74-105) mg/dL Lactic Acid (0.5-2.2) mmol/L Calcium (8.4-10.2) mg/dl Total Bilirubin (0.2-1.0) mg/dL AST (10-42) IU/L ALT (10-60) IU/L Alkaline Phosphatase (42-121) IU/L Troponin I (0.00-0.02) ng/ml C-Reactive Protein (0.0-1.3) mg/dL Total Protein (6.7-8.2) g/dl Albumin (3.2-5.5) g/dl Globulin Albumin/Globulin Ratio Urine Color Yellow (YELLOW) Urine Appearance Clear (CLEAR) Urine pH 6.0 (5.0-9.0) Ur Specific [place] 1.025 (1.005-1.030) Urine Protein Negative (NEGATIVE) Urine Glucose (UA) Negative (NEGATIVE) Urine Ketones Negative (NEGATIVE) Urine Occult Blood Trace-intact H (NEGATIVE) Urine Nitrite Negative (NEGATIVE) Urine Bilirubin Negative (NEGATIVE) Urine Urobilinogen 0.2 (0.2-1.0) mg/dL Ur Leukocyte Esterase Negative (NEGATIVE) Urine RBC 0-5 /HPF Urine WBC 0-5 (0-5/HPF) /HPF Ur Epithelial Cells Moderate H /HPF Urine Bacteria Moderate H (0-FEW/HPF) /HPF Urinalysis Comment See note Urine HCG, Qual Negative Urine Opiates Screen (NEGATIVE) Ur Oxycodone Screen (NEGATIVE) Urine Methadone Screen (NEGATIVE) Ur Barbiturates Screen (NEGATIVE) U Tricyclic Antidepress (NEGATIVE) Ur Phencyclidine Scrn (NEGATIVE) Ur Amphetamine Screen (NEGATIVE) U Methamphetamines Scrn (NEGATIVE) Urine MDMA Screen (NEGATIVE) U Benzodiazepines Scrn (NEGATIVE) Urine Cocaine Screen (NEGATIVE) U Marijuana (THC) Screen (NEGATIVE) 01/13/18 01/13/18 Range/Units 17:50 19:20 WBC (5.0-10.0) 10^3/uL RBC (4.2-5.4) 10^6/uL Hgb (12.0-16.0) g/dL Hct (37.0-47.0) % MCV (80-100) fL MCH (27.0-34.0) pg MCHC (33.0-35.0) g/dL Plt Count (150-450) 10^3/uL Neut % (Auto) (42.2-75.2) % Lymph % (Auto) (20.5-50.1) % [place] % (Auto) (2-8) % Eos % (Auto) (1.0-3.0) % Baso % (Auto) (0.0-1.0) % Add Manual Diff Neutrophils % (Manual) (42-75) % Band Neutrophils % % Lymphocytes % (Manual) (20-50) % Atypical Lymphs % % Monocytes % (Manual) (2-8) % Eosinophils % (Manual) (1-3) % Basophils % (Manual) Platelet Estimate Poikilocytosis Anisocytosis D-Dimer, Quantitative (0-400) ng/mL Sodium (135-145) mmol/L Potassium (3.6-5.0) mmol/L Chloride (101-111) mmol/L Carbon Dioxide (21.0-31.0) mmol/L Anion Gap BUN (7-18) mg/dL Creatinine (0.6-1.3) mg/dL Est Cr Clr Drug Dosing Estimated GFR (MDRD) BUN/Creatinine Ratio Glucose (74-105) mg/dL Lactic Acid 1.3 (0.5-2.2) mmol/L Calcium (8.4-10.2) mg/dl Total Bilirubin (0.2-1.0) mg/dL AST (10-42) IU/L ALT (10-60) IU/L Alkaline Phosphatase (42-121) IU/L Troponin I (0.00-0.02) ng/ml C-Reactive Protein (0.0-1.3) mg/dL Total Protein (6.7-8.2) g/dl Albumin (3.2-5.5) g/dl Globulin Albumin/Globulin Ratio Urine Color (YELLOW) Urine Appearance (CLEAR) Urine pH (5.0-9.0) Ur Specific [place] (1.005-1.030) Urine Protein (NEGATIVE) Urine Glucose (UA) (NEGATIVE) Urine Ketones (NEGATIVE) Urine Occult Blood (NEGATIVE) Urine Nitrite (NEGATIVE) Urine Bilirubin (NEGATIVE) Urine Urobilinogen (0.2-1.0) mg/dL Ur Leukocyte Esterase (NEGATIVE) Urine RBC /HPF Urine WBC (0-5/HPF) /HPF Ur Epithelial Cells /HPF Urine Bacteria (0-FEW/HPF) /HPF Urinalysis Comment Urine HCG, Qual Urine Opiates Screen Negative (NEGATIVE) Ur Oxycodone Screen Negative (NEGATIVE) Urine Methadone Screen Negative (NEGATIVE) Ur Barbiturates Screen Negative (NEGATIVE) U Tricyclic Antidepress Negative (NEGATIVE) Ur Phencyclidine Scrn Negative (NEGATIVE) Ur Amphetamine Screen Negative (NEGATIVE) U Methamphetamines Scrn Negative (NEGATIVE) Urine MDMA Screen Negative (NEGATIVE) U Benzodiazepines Scrn Negative (NEGATIVE) Urine Cocaine Screen Negative (NEGATIVE) U Marijuana (THC) Screen Negative (NEGATIVE) Meds: Medications Discontinued Medications Generic Name Dose Route Start Last Admin Trade Name Freq PRN Reason Stop Dose Admin Albuterol/Ipratropium 3 ml 01/13/18 20:09 01/13/18 20:15 Duoneb 3.0-0.5 Mg/3 Ml NEB 01/13/18 20:10 3 ml ONETIME ONE Administration Departure - Departure Disposition: DC/Tfer to [facility] 02 Clinical Impression: Dyspnea and respiratory abnormalities, Atypical chest pain Leukocytosis, unspecified Qualifiers: Leukocytosis type: unspecified Qualified Code(s): D72.829 - Elevated white blood cell count, unspecified Forms: Interfacility Transfer EMTALA - My Orders Last 24 Hours: My Active Orders 01/13/18 19:20 CULTURE BLOOD [BC] Stat 01/13/18 20:09 RT Aerosol Therapy [RC] ASDIRECTED - Assessment/Plan Last 24 Hours: My Active Orders 01/13/18 19:20 CULTURE BLOOD [BC] Stat 01/13/18 20:09 RT Aerosol Therapy [RC] ASDIRECTED <Toney Arguelles - Last Filed: 01/13/18 21:29> Course - Re-Assessments/Exams Free Text/Narrative Re-Assessment/Exam: 01/13/18 21:[address] Giang @ who kindly accepted pt. Departure - Departure Time of Disposition: 21:27 Reason for Transfer *Q: Other Condition: Fair
[2018-01-13] MEDS ORDERED: Albuterol/Ipratropium 3.0-0.5 MG/3 ML Neb Soln NEB ONE (20:09)
--- NOTE | 2018-01-16 16:52 | EKG ---
01/13/2018 - REBEL LAURENT - TIME: 5:29 p.m. FINDINGS: Sinus tachycardia at 102, probable left atrial abnormality, inferior Q waves, probable normal variation. [facility] /[id number]
== END 2018-01-13 21:40 ==
LOC: DL.ED 17:23
DX: R07.89 Other chest pain (principal); D72.829 Elevated white blood cell count, unspecified; R06.00 Dyspnea, unspecified; E66.9 Obesity, unspecified; Z88.2 Allergy status to sulfonamides; Z88.5 Allergy status to narcotic agent; Z88.8 Allergy status to other drugs, medicaments and biological substances; Z79.82 Long term (current) use of aspirin; Z87.891 Personal history of nicotine dependence
CPT/HCPCS: 36415; 71046; 80053; 80305-QW; 81001; 81025; 83605; 84484; 85025; 85379; 86140; 87040; 93005; 99285; J7620-GY

== ENCOUNTER 2018-01-21 00:01 | Emergency (ER) | payer MEDICAID ==
[2018-01-21] MEDS ORDERED: Nystatin Susp 100,000 Unit/ML 5 ML UD Cup PO ONE (00:13)
[2018-01-21 00:15] VITALS: BP 144/86
--- NOTE | 2018-01-21 00:16 | EDM.PDOC ---
ED HPI GENERAL MEDICAL PROBLEM - General Chief Complaint: General Stated Complaint: THRUSH [id number] Time Seen by Provider: 01/21/18 00:14 Source of Information: Reports: Patient History Limitations: Reports: No Limitations - History of Present Illness INITIAL COMMENTS - FREE TEXT/NARRATIVE: been using nebs and not tongue and mouth solis - Related Data Allergies Allergy/AdvReac Type Severity Reaction Status Date / Time morphine Allergy Itching Verified 01/13/18 17:43 Sulfa (Sulfonamide Allergy Other Verified 01/13/18 17:43 Antibiotics) tramadol Allergy Nausea and Verified 01/13/18 17:43 Vomiting cinnamon Allergy Other Uncoded 01/13/18 17:43 Home Meds: Home Meds Aspirin [Ecotrin] 81 mg PO DAILY 10/05/17 [History] Aspirin/Caffeine [Marvin Back & Body Caplet] 3 tab PO .PRN 10/05/17 [History] Albuterol Sulfate [Proair Hfa] 1 puff INH Q4HR 01/13/18 [History] Budesonide/Formoterol Fumarate [Symbicort 160-4.5 Mcg Inhaler] 2 puff INH BID [History] Hydrocodone/Acetaminophen [Hydrocodon-Acetaminophen 5-325] 1 mg PO ASDIRECTED [History] predniSONE 40 mg PO DAILY 01/13/18 [History] Past Medical History - Past Health History Medical/Surgical History: Denies Medical/Surgical History HEENT History: Reports: Impaired Vision Cardiovascular History: Reports: Other (See Below) Other Cardiovascular History: Palpitations with anxiety. patient states she was told she had a suspected "hole" in heart, but told she does not need follow up care or medications for it Respiratory History: Reports: Asthma, Other (See Below) Other Respiratory History: HX OF REACTIVE AIRWAY DISEASE Gastrointestinal History: Reports: GERD Other Gastrointestinal History: HEARTBURN Genitourinary History: Reports: None PUBLIC HEALTH ADVISOR History: Reports: , Other (See Below) Other PUBLIC HEALTH ADVISOR History: cervical cancer - LSIL & HPV ON PAP SMEAR. HX OF CHLAMYDIA. HX OF PREECLAMPSIA, SEVERE WITH 1ST & 2ND PREGNANCIES. HX OF GESTATIONAL DIABESTES WITH 2ND , HYPOGLYCEMIA Musculoskeletal History: Reports: Fracture Other Musculoskeletal History: R ANKLE Neurological History: Reports: Headaches, Chronic Psychiatric History: Reports: Anxiety, Depression, Panic Attack Endocrine/Metabolic History: Reports: Diabetes, Gestational, Obesity/BMI 30+ Other Endocrine/Metabolic History: hx of low blood sugar, does not have any problems now per patient. Diet controlled Hematologic History: Reports: None Immunologic History: Reports: None Oncologic (Cancer) History: Reports: Cervix Dermatologic History: Reports: None - Infectious Disease History Infectious Disease History: Reports: Chicken Pox, Shingles - Past Surgical History Head Surgeries/Procedures: Reports: None HEENT Surgical History: Reports: None Cardiovascular Surgical History: Reports: None Respiratory Surgical History: Reports: None GI Surgical History: Reports: Cholecystectomy, EGD Female Surgical History: Reports: Tubal Ligation, Other (See Below) Other Female Surgeries/Procedures: vaginal colposcopy. HX OF IUD INSERTION Endocrine Surgical History: Reports: None Neurological Surgical History: Reports: None Musculoskeletal Surgical History: Reports: Other (See Below) Other Musculoskeletal Surgeries/Procedures:: S/P ANKLE SURGERY Oncologic Surgical History: Reports: None Dermatological Surgical History: Reports: None Social & Family History - Family History Family Medical History: Noncontributory - Caffeine Use Caffeine Use: Reports: Coffee, Energy Drinks, Soda Other Caffeine Use: 5-6 CANS DAILY - Living Situation & Occupation Living situation: Reports: with Significant Other Occupation: Employed ED ROS GENERAL - Review of Systems Review Of Systems: ROS reveals no pertinent complaints other than HPI. ED EXAM, GENERAL - Physical Exam Exam: See Below Exam Limited By: No Limitations General Appearance: Alert, WD/WN, Mild Distress, Other (upset) Ears: Hearing Grossly Normal Throat/Mouth: Normal Voice, No Airway Compromise, Inflammation Head: Atraumatic Neck: Non-Tender, Full Range of Motion Respiratory/Chest: No Respiratory Distress Cardiovascular: Regular Rate, Rhythm GI/Abdominal: Soft, Non-Tender Neurological: Alert, Oriented, Normal Gait, No Motor/Sensory Deficits, Inattentive Psychiatric: Tearful Skin Exam: Warm, Dry, Normal Color Lymphatic: No Adenopathy Course - Orders/Labs/Meds Meds: Medications Discontinued Medications Generic Name Dose Route Start Last Admin Trade Name Freq PRN Reason Stop Dose Admin Nystatin 5 ml 01/21/18 00:13 Mycostatin PO 01/21/18 00:14 ONETIME ONE Departure - Departure Time of Disposition: 00:15 Disposition: Home, Self-Care 01 Condition: Good Clinical Impression: Moniliasis of mouth - Discharge Information Instructions: Oral Thrush, Adult, [id number] Additional Instructions: 1) avoid spicy foods 2) have popsicle, jello, smoothies, milk shakes 3) recheck as needed rx given; nystatin suspension tid
== END 2018-01-21 00:27 | disposition home or self-care (01) ==
LOC: DL.ED 00:01
DX: B37.0 Candidal stomatitis (principal); J45.909 Unspecified asthma, uncomplicated; Z79.82 Long term (current) use of aspirin; Z88.8 Allergy status to other drugs, medicaments and biological substances; Z88.5 Allergy status to narcotic agent; Z79.899 Other long term (current) drug therapy
CPT/HCPCS: 99282; A9270

== ENCOUNTER → 2018-11-13 | Outpatient (CLI) | payer BC ==
--- NOTE | 2018-11-14 15:30 | CT ---
CLINICAL HISTORY: 33 year-old 216 pounds female smoker with respiratory "bronchiolitis" and history of GERD. SCAN TECHNIQUE: Volume acquisition of data from the chest (bony thorax, lungs and mediastinum) obtained without oral or IV contrast while the patient was lying supine on a Siemens multislice scanner [place], [place]. All data archived in the PACS system for storage, reformatting axial/sagittal/coronal planes and study (lung/mediastinal windows). INTERPRETATION: 1. Normal cardiac silhouette. No pericardial effusions. No cephalization of vascular flow, alveolar edema or pleural effusions. 2. Left-sided aortic arch. Normal caliber. 3. Isolated tiny 1-2 mm nodule anterior segment RUL. No other significant parenchymal lung nodule or mass lesion. 4. No peribronchial "cuffing" or air trapping indicating RAD. No focal lobar pneumonia, atelectasis/collapse, or cystic/bullous emphysematous disease. No abnormal pleural reactive inflammatory changes. No pneumothorax. 5. Cholecystectomy. Upper abdominal viscera unremarkable. 6. Early marginal spondylosis. No pathologic skeletal lesion, thoracic fracture or dislocation. CONCLUSION: Tiny RUL nodule. No sign lung mass, lobar pneumonia, reactive airway disease or heart failure.
== END ==
LOC: DL.CT 12:54
PROVIDERS: ATTEND Internal Medicine
DX: J45.20 Mild intermittent asthma, uncomplicated (principal); F17.200 Nicotine dependence, unspecified, uncomplicated; J21.9 Acute bronchiolitis, unspecified; R91.1 Solitary pulmonary nodule
CPT/HCPCS: 71250

== ENCOUNTER 2019-05-07 05:50 | Day surgery (SDC) | payer BC ==
[2019-05-07] MEDS ORDERED: Propofol 200 MG/20 ML SDV IV ONE (05:51)
[2019-05-07] MEDS ORDERED: Bupivacaine 0.5% 30 ML SDV ONE ×2 (05:51→06:56)
[2019-05-07] MEDS ORDERED: Lidocaine 2% 20 ML MDV ONE (05:51)
[2019-05-07] MEDS ORDERED: Dexamethasone 4 MG/ML SDV IV ONE (05:51)
[2019-05-07] MEDS ORDERED: Betamethasone Acetate/Betamethasone Sod Phosphate 30 MG/5 ML MDV ONE ×2 (05:51→10:07)
[2019-05-07] MEDS ORDERED: Ketorolac 30 MG/ML SDV IVPUSH ONE (05:51)
[2019-05-07] MEDS ORDERED: fentaNYL 100 MCG/2 ML SDV IV ONE (05:51)
[2019-05-07] MEDS ORDERED: Ondansetron 4 MG/2 ML SDV IV ONE (05:51)
[2019-05-07] MEDS ORDERED: Lidocaine 1% 30 ML SDV ONE ×2 (05:51→06:56)
[2019-05-07] MEDS ORDERED: Midazolam 1 MG/ML 2 ML SDV IV ONE (05:51)
[2019-05-07] MEDS ORDERED: Metoclopramide 10 MG/2 ML SDV IV ONE (05:51)
[2019-05-07] MEDS ORDERED: Sodium Chloride 0.9% 10 ML Syringe FLUSH PRN ×2 (06:00)
[2019-05-07] MEDS ORDERED: ceFAZolin 2 GM in Premix Bag 1 BAG IV SCH (06:00)
[2019-05-07] MEDS: Lactated Ringers 1,000 ML IV SCH ×2 (06:56→12:35)
[2019-05-07] MEDS ORDERED: Bupivacaine 0.5% 30 ML SDV INJECT ONE ×2 (07:44→10:31)
[2019-05-07] MEDS ORDERED: Lidocaine 1% 30 ML SDV INJECT ONE ×2 (07:44→10:31)
[2019-05-07] MEDS ORDERED: Betamethasone Acetate/Betamethasone Sod Phosphate 30 MG/5 ML MDV IARTIC ONE (10:30)
--- NOTE | 2019-05-07 11:45 | CR ---
EXAMINATION: Ankle Min 3V Rt SEX: Female AGE: 33 years CLINICAL HISTORY: 33-year-old female surgery right ankle. Note: patient reported on MRI 02 April 2019 to have "high-grade tear anteriorly talofibular ligament, full-thickness tear of the calcaneofibular ligament and plantar fasciotomy". FINAL SURGICAL XRAY INTERPRETATION: 1. Symmetric normal spacing of the tibiotalar mortise joint demonstrated through the cast material. 2. No inflammatory periostitis or signs of osteomyelitis right ankle. 3. No right ankle fracture or dislocation appreciated through the cast. 4. No other foreign bodies.
[2019-05-07] MEDS ORDERED: Acetaminophen/oxyCODONE 325-5 MG Tab PO PRN (11:50)
--- NOTE | 2019-05-07 13:19 | PCM.OPNOTE ---
- General Post-Op/Procedure Note Date of Surgery/Procedure: 05/07/19 Operative Procedure(s): right ankle arthroscopy with debridment, peroneal tendon exploration with debridment of synovitis, lateral ankle ligament repair with internal brace, ganglion cyst debridment and injection with betametasone Pre Op Diagnosis: right ankle pain, lateral ankle ligament tear, peroneal synovitis, ganglion cyst foot. Post-Op Diagnosis: radha Anesthesia Technique: General LMA, Local Primary Surgeon: Saumya Cross Anesthesia Provider: Danilo Meyer EBMiguel in mLs: 10 Complications: none Condition: Good Free Text/Narrative:: Intake & Output 05/06/19 05/07/19 05/07/19 22:59 06:59 14:59 Intake Total 50 Balance 50 Pt tolerated procedure well and was transported to recovery with vascular status intact to right ankle/foot. Arthrex internal brace with anchors to lateral ankle/foot, fibertak anchors to distal fibula. Well padded L&U splint applied with foot in neutral/eversion.
[2019-05-07 14:05] VITALS: BP 164/94; PULSE 101
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
== END 2019-05-07 13:16 | disposition home or self-care (01) ==
LOC: DL.SDS 05:50
PROVIDERS: ATTEND Podiatrist
DX: G89.29 Other chronic pain (principal); S93.491A Sprain of other ligament of right ankle, initial encounter; M65.9 Synovitis and tenosynovitis, unspecified; M67.471 Ganglion, right ankle and foot; V28.5XXA Motorcycle passenger injured in noncollision transport accident in traffic accident, initial encounter; Y92.410 Unspecified street and highway as the place of occurrence of the external cause; Z98.890 Other specified postprocedural states; Z87.891 Personal history of nicotine dependence
CPT/HCPCS: 27630; 27695; 73610; 81025; A9270; J0690; J0702; J1100; J1885; J2001; J2250; J2405; J2704; J2765; J3010; J3490; J7120

== ENCOUNTER 2021-06-03 22:14 | Emergency (ER) | payer BC ==
[2021-06-04 00:18] VITALS: PULSE 123
[2021-06-04 01:05] LABS: ANION GAP 18.2 mEq/L (7-13); CHLORIDE,CL 103 mmol/L (98-107); SODIUM,NA 142 mmol/L (136-145)
[2021-06-04] MEDS ORDERED: Iopamidol 755 Mg/ML 100 ML Bottle IVPUSH ONE (01:22)
[2021-06-04] MEDS ORDERED: Dexamethasone 4 MG/ML SDV IVPUSH ONE (02:34)
== END 2021-06-04 02:52 | disposition home or self-care (01) ==
LOC: DL.ED 22:14
DX: U07.1 COVID-19 (principal); K21.9 Gastro-esophageal reflux disease without esophagitis; E66.9 Obesity, unspecified; Z68.30 Body mass index [BMI] 30.0-30.9, adult; Z87.891 Personal history of nicotine dependence; Z88.2 Allergy status to sulfonamides; Z88.5 Allergy status to narcotic agent; Z91.018 Allergy to other foods; Z79.899 Other long term (current) drug therapy
CPT/HCPCS: 36415; 71260; 80053; 83605; 83735; 85025; 85379; 85610; 93005; 96374; 99284; J1100; Q9967

== ENCOUNTER 2022-04-24 22:08 | Emergency (ER) | payer BC, MEDICAID ==
[2022-04-24 22:48] VITALS: BP 130/82; PULSE 99
[2022-04-24 23:17] LABS: RESPIRATORY SYNCYTIAL VIR NAA NEGATIVE (NEGATIVE)
[2022-04-24 23:36] LABS: CORONAVIRUS COVID-19 NAA POSITIVE (NEGATIVE)
== END 2022-04-25 00:07 | disposition home or self-care (01) ==
LOC: DL.ED 22:08
DX: U07.1 COVID-19 (principal); J45.909 Unspecified asthma, uncomplicated; K21.9 Gastro-esophageal reflux disease without esophagitis; E66.9 Obesity, unspecified; Z68.32 Body mass index [BMI] 32.0-32.9, adult; Z88.2 Allergy status to sulfonamides; Z88.5 Allergy status to narcotic agent; Z88.8 Allergy status to other drugs, medicaments and biological substances; Z91.018 Allergy to other foods; Z79.899 Other long term (current) drug therapy
CPT/HCPCS: 0241U; 87081; 87430; 99283

== ENCOUNTER 2023-07-13 12:08 | Emergency (ER) | payer MEDICAID ==
[2023-07-13] MEDS: Acetaminophen/HYDROcodone 325-5 MG Tab PO ONE ×2 (12:35→14:12)
[2023-07-13] MEDS: Sodium Chloride 0.9% 10 ML Syringe FLUSH PRN (12:37)
[2023-07-13 12:38] LABS: BASOPHILS PERCENT AUTO 0.2 % (0.0-1.0); EOSINOPHILS PERCENT AUTO 0.5 % (1.0-3.0); HEMATOCRIT 43.7 % (37.0-47.0); HEMOGLOBIN 14.5 g/dL (12.0-16.0); LYMPHOCYTES PERCENT AUTO 25.3 % (20.5-50.1); MEAN CORPUSCULAR HEMOGLOBIN 31.5 pg (27.0-34.0); MEAN CORPUSCULAR HGB CONC 33.2 g/dL (33.0-35.0); MEAN CORPUSCULAR VOLUME 94.8 fL (80-100); MONOCYTES PERCENT AUTO 5.3 % (2-8); NEUTROPHILS PERCENT AUTO 68.7 % (42.2-75.2); PLATELET COUNT,PLT 428 10^3/uL (150-450); RED BLOOD CELL COUNT 4.61 10^6/uL (4.2-5.4)
[2023-07-13 12:57] LABS: A/G RATIO 1.2; ALBUMIN 4.5 g/dL (3.4-5.0); ANION GAP 14.7 mEq/L (7-13); BILIRUBIN TOTAL 0.5 mg/dL (0.2-1.0); BUN/CREATININE RATIO 16.7 (No establ ref range); CALCIUM 9.3 mg/dL (8.5-10.1); CREATININE 0.78 mg/dL (0.55-1.02); EST CRCL DRUG DOSING (CG) 86.1 mL/min; POTASSIUM,K 3.7 mmol/L (3.5-5.1); PROTEIN TOTAL,TP 8.2 g/dL (6.4-8.2)
[2023-07-13] MEDS: Gadobenate Dimeglumine 529 MG/ML 20 ML SDV IVPUSH ONE (13:28)
[2023-07-13 14:02] VITALS: BP 151/95; PULSE 101
[2023-07-13] MEDS: fentaNYL 100 MCG/2 ML SDV IVPUSH ONE (14:12)
[2023-07-13] MEDS: Dexamethasone 4 MG/ML SDV IVPUSH ONE (16:46)
== END 2023-07-13 16:54 | disposition home or self-care (01) ==
LOC: DL.ED 12:08
DX: M51.16 Intervertebral disc disorders with radiculopathy, lumbar region (principal); Z88.2 Allergy status to sulfonamides; Z88.5 Allergy status to narcotic agent; Z88.8 Allergy status to other drugs, medicaments and biological substances
CPT/HCPCS: 36415; 72158; 80053; 85025; 96374; 96375; 99284; A9270; A9577; J1100; J3010; J3490

== ENCOUNTER 2025-03-26 12:05 | Emergency (ER) | payer BC, MEDICAID, OTHER ==
[2025-03-26] MEDS: Ketorolac 30 MG/ML SDV IM ONE (12:45)
[2025-03-26] MEDS: Ondansetron 4 MG Tab.DIS PO ONE (12:45)
[2025-03-26 13:06] VITALS: BP 128/68; PULSE 77
== END 2025-03-26 12:45 | disposition home or self-care (01) ==
LOC: DL.ED 12:05
DX: F44.5 Conversion disorder with seizures or convulsions (principal); Z88.2 Allergy status to sulfonamides; Z88.5 Allergy status to narcotic agent; Z88.8 Allergy status to other drugs, medicaments and biological substances; Z79.899 Other long term (current) drug therapy
CPT/HCPCS: 99283

== ENCOUNTER 2025-04-01 05:33 | Day surgery (SDC) | payer BC ==
[2025-04-01] MEDS ORDERED: Midazolam 1 MG/ML 2 ML SDV IV ONE (05:34)
[2025-04-01] MEDS ORDERED: Lactated Ringers 1,000 ML IV ONE (05:34)
[2025-04-01] MEDS ORDERED: Propofol 200 MG/20 ML SDV IV ONE (05:34)
[2025-04-01] MEDS ORDERED: Propofol 200 MG/20 ML SDV ONE (05:55)
[2025-04-01] MEDS: Lactated Ringers 1,000 ML IV SCH (06:00)
[2025-04-01] MEDS: Ondansetron 4 MG/2 ML SDV IVPUSH ONE (07:03)
[2025-04-01 08:29] VITALS: BP 101/64; PULSE 68
== END 2025-04-01 08:13 | disposition home or self-care (01) ==
LOC: DL.ENDO 05:33
PROVIDERS: ATTEND Internal Medicine Gastroenterology
DX: K29.50 Unspecified chronic gastritis without bleeding (principal); K92.0 Hematemesis; E66.09 Other obesity due to excess calories; F32.A Depression, unspecified; Z88.8 Allergy status to other drugs, medicaments and biological substances; Z88.5 Allergy status to narcotic agent; Z88.2 Allergy status to sulfonamides; Z68.38 Body mass index [BMI] 38.0-38.9, adult
CPT/HCPCS: 43239; J2003; J2250; J2405; J2704; J7120